=== PATIENT | male | born 1990 | race American Indian/Alaskan Native ===

== ENCOUNTER 2017-01-21 02:16 | Emergency (ER) | payer SELFPAY ==
[2017-01-21 02:25] VITALS: BP 141/88
--- NOTE | 2017-01-24 07:28 | ED Elopement Review ---
ED Pt Elopement review - Call Back decision Pt Call Back Decision: No action required
== END 2017-01-21 04:35 | disposition left against medical advice (07) ==
LOC: ED 02:16
DX: R36.9 Urethral discharge, unspecified (principal); Z53.21 Procedure and treatment not carried out due to patient leaving prior to being seen by health care provider
CPT/HCPCS: 87086

== ENCOUNTER 2017-01-21 21:01 | Emergency (ER) | payer SELFPAY ==
[2017-01-21 21:19] VITALS: BP 127/83
== END 2017-01-22 02:55 | disposition left against medical advice (07) ==
LOC: ED 21:01
DX: A64 Unspecified sexually transmitted disease (principal); Z53.21 Procedure and treatment not carried out due to patient leaving prior to being seen by health care provider

== ENCOUNTER 2017-01-26 23:41 | Emergency (ER) | payer SELFPAY ==
[2017-01-27 00:45] VITALS: BP 138/82
[2017-01-27 01:21] LABS: Bilirubin,Urine NEG (Negative); Blood,Urine NEG (Negative); Ketones,Urine NEG (Negative); Leukocyte Esterase,Urine LG (Negative); Mucus,Urine 3+ /HPF; Nitrite,Urine NEG (Negative)
[2017-01-27 01:23] LABS: WBC,Urine > 182.0 /HPF (0.0-6.0)
== END 2017-01-27 04:15 | disposition left against medical advice (07) ==
LOC: ED 23:41
DX: R30.9 Painful micturition, unspecified (principal); Z53.21 Procedure and treatment not carried out due to patient leaving prior to being seen by health care provider
CPT/HCPCS: 81001; 87591

== ENCOUNTER 2017-03-16 08:45 | Emergency (ER) | payer SELFPAY ==
[2017-03-16] MEDS ORDERED: TYLENOL PO ONE (09:15)
[2017-03-16] MEDS ORDERED: XYLOCAINE 1% MPF 5 mL ONE (09:24)
--- NOTE | 2017-03-16 10:53 | XRay Report ---
Left tibia fibula: History: Trauma. Findings: There is internal fixation noted of the proximal diaphysis fracture of left tibia and fibula with intramedullary stephen at tibia with multiple metallic screws. The fractures appear healed. No evidence of acute fracture. Impression: Stable findings left tibia fibula..
[2017-03-16] MEDS ORDERED: NACL 0.9% 500 ML IR ONE (11:06)
[2017-03-16] MEDS ORDERED: TRIPLE ANTIBIOTIC TP ONE (11:15)
[2017-03-16 11:50] VITALS: BP 130/80
--- NOTE | 2017-03-16 12:40 | Emergency Department Report ---
Entered by MERLINE YUAN, acting as scribe for SANTO THOMPSON PA. - General Chief Complaint: Extremity Injury, Lower Stated Complaint: PW TO LEG Time Seen by Provider: 03/16/17 09:19 Source: patient Mode of arrival: Wheelchair Limitations: No Limitations - History of Present Illness Initial Comments: 26 y/o male with no significant PMHx presents to the ED c/o a puncture wound to left knee that began this morning at 07:00. Patient states he was moving a broken tree branch in his yard when the branch subsequently cut his leg. Rates pain an 8/10 in severity, which he describes as aching in quality. Aggravated with movement and palpation, and alleviated with nothing. Associated symptoms includes tingling and pain in left lower leg, but he denies numbness and having any other injuries. Not UTD with tetanus. NKDA. -: This morning Time: 07:00 Extremity Location: Left: Knee Place: home Patient Tetanus UTD: No Context: accidental Associated Symptoms: pain (LT knee/lower leg), loss of feeling/numbness ( tingling). denies: suspect foreign body present, unable to move injured part, weakness followed by dizziness, nausea/vomiting, fever Treatments Prior to Arrival: bandage - Related Data Previous Rx's Medication Instructions Recorded Last Taken Type Cephalexin [Keflex] 500 mg PO Q12HR #10 cap 03/16/17 Unknown Rx Ibuprofen [Motrin] 800 mg PO Q8HR PRN #30 tablet 03/16/17 Unknown Rx Allergies Allergy/AdvReac Type Severity Reaction Status Date / Time No Known Allergies Allergy Verified 01/21/17 02:20 ED Review of Systems Comment: All other systems reviewed and negative Constitutional: denies: chills, fever Eyes: denies: eye pain, eye discharge, vision change ENT: denies: ear pain, throat pain Respiratory: denies: cough, shortness of breath, wheezing Cardiovascular: denies: chest pain, palpitations Endocrine: no symptoms reported Gastrointestinal: denies: abdominal pain, nausea, diarrhea Genitourinary: denies: urgency, dysuria Musculoskeletal: denies: back pain, joint swelling, arthralgia, myalgia Skin: other (punture wound to left knee with associated pain). denies: rash, lesions Neurological: paresthesias (tingling in left lower leg). denies: headache, weakness, numbness, confusion, abnormal gait, vertigo Psychiatric: denies: anxiety, depression Hematological/Lymphatic: denies: easy bleeding, easy bruising ED Past Medical Hx - Past Medical History Previous Medical History?: No - Surgical History Past Surgical History?: Yes Additional Surgical History: left lower leg - Family History Family history: no significant - Social History Smoking Status: Never Smoker Substance Use Type: None - Medications Home Medications: Home Medications Medication Instructions Recorded Confirmed Last Taken Type Cephalexin [Keflex] 500 mg PO Q12HR #10 cap 03/16/17 Unknown Rx Ibuprofen [Motrin] 800 mg PO Q8HR PRN #30 tablet 03/16/17 Unknown Rx ED Physical Exam - General Limitations: No Limitations General appearance: alert, in no apparent distress - Head Head exam: Present: atraumatic, normocephalic - Eye Eye exam: Present: normal appearance, PERRL, EOMI Pupils: Present: normal accommodation - ENT ENT exam: Present: normal exam, mucous membranes moist, normal external ear exam - Neck Neck exam: Present: normal inspection, full ROM. Absent: tenderness, meningismus, lymphadenopathy - Respiratory Respiratory exam: Present: normal lung sounds bilaterally. Absent: respiratory distress, wheezes, rales, rhonchi, stridor - Cardiovascular Cardiovascular Exam: Present: regular rate, normal rhythm, normal heart sounds. Absent: systolic murmur, diastolic murmur, rubs, gallop - GI/Abdominal GI/Abdominal exam: Present: soft, normal bowel sounds. Absent: distended - Extremities Exam Extremities exam: Present: full ROM, tenderness (LT anterior knee), normal capillary refill. Absent: normal inspection, pedal edema, joint swelling, calf tenderness - Expanded Lower Extremity Exam Left Hip exam: Present: normal inspection, full ROM Upper Leg exam: Present: normal inspection, full ROM Knee exam: Present: full ROM, tenderness, laceration (1 cm puncture wound to LT anterior knee), full knee extension. Absent: normal inspection, swelling, abrasion, ecchymosis, deformity, crepidus, dislocation, erythema, effusion, pain w/ pronation/supination, posterior draw sign, pain/laxity with valgus, pain /laxity with varus Lower Leg exam: Present: normal inspection, full ROM. Absent: tenderness, swelling, abrasion, laceration, ecchymosis, deformity, crepidus, dislocation, erythema, palpable cord, Jovanni's sign Ankle exam: Present: normal inspection, full ROM. Absent: tenderness Foot/Toe exam: Present: normal inspection, full ROM. Absent: tenderness Neuro vascular tendon exam: Present: no vascular compromise. Absent: pulse deficit, abnormal cap refill, motor deficit, sensory deficit, tendon deficit, extremity cold to touch, pallor, abnormal 2-point discrimination, decreased fine /light touch, foot drop, peroneal nerve deficit, significant pain with passive ROM of distal joint Gait: Positive: observed and limited by pain - Back Exam Back exam: Present: normal inspection, full ROM - Neurological Exam Neurological exam: Present: alert, oriented X3, normal gait (limited by left lower leg pain) - Psychiatric Psychiatric exam: Present: normal affect, normal mood - Skin Skin exam: Present: warm, dry, intact. Absent: rash ED Course Vital Signs 03/16/17 08:53 Temperature 98.7 F Pulse Rate 76 Respiratory 16 Rate Blood Pressure 108/72 O2 Sat by Pulse 100 Oximetry - Laceration /Wound Repair Left Knee Wound Length (cm): 1 Wound's Depth, Shape: superficial, linear Wound Explored: clean Irrigated w/ Saline (ccs): 200 Betadine Prep?: Yes Anesthesia: 1% Lidocaine Volume Anesthetic (ccs): 4 Wound Repaired With: sutures Suture Size/Type: 4:0, proline Number of Sutures: 3 Layer Closure?: No Sterile Dressing Applied?: Yes ED Medical Decision Making - Radiology Data Radiology results: report reviewed, image reviewed Left tibia fibula: History: Trauma. Findings: There is internal fixation noted of the proximal diaphysis fracture of left tibia and fibula with intramedullary stephen at tibia with multiple metallic screws. The fractures appear healed. No evidence of acute fracture. Impression: Stable findings left tibia fibula.. Transcribed By: PTP Dictated By: NICK AGUILAR MD Electronically Authenticated By: NICK AGUILAR MD Signed Date/Time: 03/16/17 1049 - Medical Decision Making 26 y/o male presents with a puncture wound to left knee ED course: Patient was given 1 dose of Tylenol. Patient received an X-ray of left knee and left tib/fib. The 1cm laceration wound was prepped and draped in sterile fashion. Anesthesia was achieved with 4mL of 1% lidocaine. The wound was irrigated with 200cc NS and explored. There were no foreign bodies The wound was reapproximated in 1 layer suing with three 4-0 monofilament sutures in the dermis with interrupted sutures percutaneously. There was excellent reapproximation of the wound edges. The patient tolerated the procedure without complication Vital signs stable patient is in no acute or respiratory distress. Discussed with patient to follow up with PCP as referred, Patient states understanding and will follow instructions. Pt verbally states understanding and will comply to follow up. ED Disposition Clinical Impression: Laceration of left knee without complication Qualifiers: Encounter type: initial encounter Qualified Code(s): S81.012A - Laceration without foreign body, left knee, initial encounter Disposition: TO HOME OR SELFCARE Is pt being admited?: No Does the pt Need Aspirin: No Condition: Stable Instructions: Suture Removal (ED), Laceration (ED), Suture Care (ED) Additional Instructions: Return to ED in 7-10 days for suture removal Follow-up with primary care physician. Prescriptions: Cephalexin [Keflex] 500 mg PO Q12HR #10 cap Ibuprofen [Motrin] 800 mg PO Q8HR PRN #30 tablet PRN Reason: Pain Referrals: PRIMARY CARE,MD [Primary Care Provider] - 3-5 Days [facility] [Outside] - 3-[address] [facility] [Outside] - 3-5 Days Forms: Accompanied Note, Work/School Release Form(ED) Time of Disposition: 11:21 This documentation as recorded by the KWABENA lagos JASMINE,accurately reflects the service I personally performed and the decisions made by DONNA snow OYINLOLA A, PA.
[2017-03-16] MEDS ORDERED: NACL 0.9% IR ONE (16:41)
== END 2017-03-16 11:50 | disposition home or self-care (01) ==
LOC: ED 08:45
DX: S81.012A Laceration without foreign body, left knee, initial encounter (principal); W22.8XXA Striking against or struck by other objects, initial encounter; Y93.89 Activity, other specified; Y92.89 Other specified places as the place of occurrence of the external cause; Y99.8 Other external cause status
CPT/HCPCS: 99283; A6250